=== PATIENT | female | born 1975 | race Hispanic/Latino ===

== ENCOUNTER 2022-06-30 19:28 | Emergency (ER) | payer BC ==
[~2022-06-30] VITALS: Ht 167.6 cm; Wt 108.9 kg
== END 2022-06-30 21:59 | disposition home or self-care (01) ==
LOC: FSED 19:37
DX: R06.02 Shortness of breath (principal); R00.2 Palpitations; I10 Essential (primary) hypertension; M06.9 Rheumatoid arthritis, unspecified
CPT/HCPCS: 71046; 80053; 81003; 82553; 84484; 85025; 93005; 99284